=== PATIENT | female | born 1960 | race Caucasian/White ===

== ENCOUNTER 2019-08-06 07:19 | Outpatient (CLI) | payer MEDICARE, OTHER ==
--- NOTE | 2019-08-06 08:16 | CT ---
CT abdomen and pelvis noncontrast HISTORY: Right flank pain. FINDINGS: Each renal collecting system, ureter, and urinary bladder are decompressed. There are tiny calcifications, estimated at 0.2 cm greatest diameter, within nondilated calyces of the superior pole of each kidney. Lack of contrast limits evaluation for other abnormalities. The gallbladder is surgically absent. No evidence of bowel obstruction or inflammation. Left hip prosthesis partially visualized. There are prominent degenerative changes of the lumbar spine, including significant central canal stenoses at t he L1-2 and L3-4 levels. Calcification within the arterial structures. IMPRESSION: Tiny nonobstructing bilateral renal calculi. Atherosclerosis. Prominent degenerative changes of the lumbar spine.
== END 2019-08-06 07:20 | disposition home or self-care (01) ==
LOC: BICCT 07:19
PROVIDERS: ATTEND Family Medicine
DX: R10.9 Unspecified abdominal pain (principal); N20.0 Calculus of kidney; I70.90 Unspecified atherosclerosis; M47.816 Spondylosis without myelopathy or radiculopathy, lumbar region
CPT/HCPCS: 74176

== ENCOUNTER 2019-09-10 01:19 | Emergency (ER) | payer MEDICARE ==
[2019-09-10] MEDS ORDERED: Aspirin 325 MG TAB ONE (01:41)
[2019-09-10 01:54] LABS: #Basophils 0.1 thou/uL (0.0-0.2); #Eosinphils 0.4 thou/uL (0.0-0.7); #Lymphocytes 2.6 thou/uL (1.20-3.40); #Monocytes 0.5 thou/uL (0.11-0.59); #Neutrophils 4.1 thou/uL (1.40-6.50); %Basophils 1.3 % (0.0-1.0); %Eosinophils 4.7 % (0.0-10.0); %Lymphocytes 34.1 % (21.0-51.0); %Monocytes 6.6 % (0.0-10.0); %Neutrophils 53.3 % (42.0-75.0); Hemoglobin 15.2 g/dL (12.0-16.0); Mean Corpuscular Hemoglobin 29.8 pg (27.0-31.0); Mean Corpuscular Volume 90.2 fL (78.0-98.0); Mean Platelet Volume 9.4 fL (7.4-10.4); Platelet Count 153 thou/uL (130-400); RBC Distribution Width 12.6 % (11.5-14.5); Red Blood Cell (RBC) Count 5.09 mill/uL (4.20-5.40); White Blood Cell (WBC) Count 7.8 thou/uL (4.8-10.8)
[2019-09-10 02:09] LABS: ALT (SGPT) 203 U/L (8-55); AST (SGOT) 92 U/L (5-34); Albumin 4.2 g/dL (3.5-5.0); Alkaline Phosphatase 83 U/L (40-110); Anion Gap 10 mmol/L (10-20); BUN (Urea Nitrogen) 19 mg/dL (9.8-20.1); Bilirubin, Total 0.3 mg/dL (0.2-1.2); Calc. Creatinine Clearance 0 mL/min (70-130); Calcium 9.1 mg/dL (7.8-10.44); Carbon Dioxide 28 mmol/L (22-29); Chloride 106 mmol/L (98-107); Estimated GFR-MDRD 76; Globulin 3.5 g/dL (2.4-3.5); Glucose 100 mg/dL (70-105); Potassium 4.2 mmol/L (3.5-5.1); Protein, Total 7.7 g/dL (6.0-8.3); Sodium 140 mmol/L (136-145)
--- NOTE | 2019-09-10 08:36 | ULT ---
PRELIMINARY REPORT/[facility]/EMERGENCY AFTER HOURS PROCEDURE: EXAM: US Abdomen Limited, Right Upper Quadrant. CLINICAL HISTORY: Epigastric pain that radiated to back, nausea TECHNIQUE: Real-time ultrasound of the right upper quadrant with image documentation. COMPARISON: None FINDINGS: LIVER: Appears enlarged at 20 cm and demonstrates fatty infiltration. The RIGHT lobe demonstrates a 1.9 x 1.3 x 1.6 cm echogenic focus, possibly a hemangioma GALLBLADDER: Surgically absent. COMMON BILE DUCT: No dilation. Measures 3.5 mm PANCREAS: Partially obscured by overlying bowel gas. RIGHT KIDNEY: Unremarkable. No hydronephrosis. Measures 10.9 cm IMPRESSION: Possible hemangioma in the liver for which multiphasic hepatic CT scanning should be considered. Enl arged fatty infiltrated liver with cholecystectomy however no acute process is noted ELECTRONICALLY SIGNED BY: Maycol Falcon MD Sep 10, 2019 3:05:37 AM CLERICAL ASSISTANT This report is intended for review by the ordering physician only, in accordance of law. If you recei ve this report in error, please call [facility] at [phone]. FINAL REPORT ULTRASOUND GALLBLADDER RIGHT UPPER QUADRANT: HISTORY: Right upper quadrant pain. COMPARISON: None. FINDINGS: Findings and impression are concordant with the preliminary report. POS: CET
--- NOTE | 2019-09-10 08:38 | CT ---
PRELIMINARY REPORT/[facility]/EMERGENCY AFTER HOURS PROCEDURE: CT angiography chest Comparison: None Indication: REPORTS CHEST PAIN/SOB STARTING AT 1800. STATES PAIN TRAVELS BACK. DENIES N/V Findings: No aortic aneurysm or evidence of dissection. Prominent prepericardial lymph nodes. No other mediastinal mass or lymphadenopathy. Borderline cardiomegaly. No pericardial effusion. Subsegmental atelectasis in the lung bases. No pulmonary embolus. Normal airways. No consolidation, pleural effusion or pneumothorax. Impression: No pulmonary embolus or acute vascular abnormality identified. No definite cause for symptoms identified. There is mild subsegmental atelectasis in the lung bases. Prominent prepericardial lymph nodes are probably reactive and could be associated with hepatitis. Co rrelate clinically. ELECTRONICALLY SIGNED BY: Renard Marte MD Sep 10, 2019 2:42:01 AM JEWELRY FINISHER This report is intended for review by the ordering physician only, in accordance of law. If you recei ve this report in error, please call [facility] at [phone]. FINAL REPORT CT ANGIOGRAM CHEST WITH CONTRAST: HISTORY: Chest pain. COMPARISON: None. FINDINGS: CT angiogram chest performed after the intravenous administration of contrast. Three-D rendering is provided. Findings and impression are concordant with the preliminary report. In addition, there is bronchial wall thickening of both lower lobe proximal bronchi suggesting bronchitis. POS: CET
--- NOTE | 2019-09-10 08:49 | RAD ---
CHEST 1 VIEW: Date: 09/10/2019 HISTORY: Chest pain. COMPARISON: CT angiogram chest same date. FINDINGS: Lungs are clear. No pneumothorax or effusion. Cardiac silhouette and mediastinal contour within westley l limits. IMPRESSION: No acute intrathoracic abnormality. POS: CET
[2019-09-10] MEDS ORDERED: Iopamidol-370 76% 500 ML 1 ML ONE (13:30)
== END 2019-09-10 03:23 | disposition home or self-care (01) ==
LOC: ERS 01:19
DX: J98.11 Atelectasis (principal); R74.0 Nonspecific elevation of levels of transaminase and lactic acid dehydrogenase [LDH]; I10 Essential (primary) hypertension; F41.9 Anxiety disorder, unspecified; F32.9 Major depressive disorder, single episode, unspecified; F17.210 Nicotine dependence, cigarettes, uncomplicated; M06.9 Rheumatoid arthritis, unspecified; Z79.899 Other long term (current) drug therapy
CPT/HCPCS: 71045; 71275; 76705; 80053; 83690; 83880; 84484; 85025; 93005; 96360; 96361; Q9967

== ENCOUNTER 2020-03-29 09:44 | Outpatient (CLI) | payer MEDICARE ==
--- NOTE | 2020-03-29 14:01 | MMO ---
Bilateral MAMMO Bilat Screen [facility]. CLINICAL HISTORY: Patient is 59 years old and is seen for screening. The patient family history of breast cancer is unknown. The patient has no personal history of cancer. VIEWS: The views performed were: bilateral craniocaudal with tomosynthesis and bilateral mediolateral oblique with tomosynthesis. FILMS COMPARED: The present examination has been compared to a prior imaging study performed at [facility] on 10/18/2017. This study has been interpreted with the assistance of computer-aided detection. MAMMOGRAM FINDINGS: There are scattered fibroglandular densities. There are no suspicious masses, suspicious calcifications, or new areas of architectural distortion. IMPRESSION: THERE IS NO MAMMOGRAPHIC EVIDENCE OF MALIGNANCY. A ROUTINE FOLLOW-UP MAMMOGRAM IN 1 YEAR IS RECOMMENDED. THE RESULTS OF THIS EXAM WERE SENT TO THE PATIENT. ACR BI-RADS Category 1 - Negative MAMMOGRAPHY NOTE: 1. A negative mammogram report should not delay a biopsy if a dominant of clinically suspicious mass is present. 2. Approximately 10% to 15% of breast cancers are not detected by mammography. 3. Adenosis and dense breasts may obscure an underlying neoplasm. Reported by: JACQUES NEW MD Electonically Signed: [id number]
== END 2020-03-29 09:45 | disposition home or self-care (01) ==
LOC: BICMAMMO 09:44
PROVIDERS: ATTEND Family Medicine
DX: Z12.31 Encounter for screening mammogram for malignant neoplasm of breast (principal)
CPT/HCPCS: 77063; 77067

== ENCOUNTER 2020-04-01 13:44 | Outpatient (CLI) | payer MEDICARE, OTHER ==
--- NOTE | 2020-04-01 14:51 | ULT ---
SOFT TISSUE ULTRASOUND OF THE NECK: 04/01/20 INDICATION: Swelling in the right posterior neck. COMPARISON: MR cervical spine dated 02/25/13. FINDINGS: Submitted images demonstrates a 3.7 x 1.2 cm soft tissue mass that has a similar echogenicity of the overlying subcutaneous fat and suspicious for a poorly encapsulated lipoma. IMPRESSION: Findings suspicious for poorly encapsulated lipoma in the region of palpable interest involving the r ight posterior neck. Recommend a dedicated MRI of the neck with and without contrast for further alivia acterization. POS: ARIANE
== END 2020-04-01 13:45 | disposition home or self-care (01) ==
LOC: BICULT 13:44
PROVIDERS: ATTEND Family Medicine
DX: R22.1 Localized swelling, mass and lump, neck (principal)
CPT/HCPCS: 76536

== ENCOUNTER 2022-04-16 12:09 | Outpatient (CLI) | payer MEDICARE | END 2022-04-16 12:10 | disposition home or self-care (01) | LOC: BICCT 12:09 | PROVIDERS: ATTEND Family Medicine | DX: Z12.31 Encounter for screening mammogram for malignant neoplasm of breast (principal); Z12.2 Encounter for screening for malignant neoplasm of respiratory organs; Z13.820 Encounter for screening for osteoporosis; F17.210 Nicotine dependence, cigarettes, uncomplicated; M47.814 Spondylosis without myelopathy or radiculopathy, thoracic region; M47.816 Spondylosis without myelopathy or radiculopathy, lumbar region; M25.78 Osteophyte, vertebrae; M48.061 Spinal stenosis, lumbar region without neurogenic claudication; M81.0 Age-related osteoporosis without current pathological fracture; Z78.0 Asymptomatic menopausal state | CPT/HCPCS: 71271; 77063; 77067; 77080 ==

== ENCOUNTER 2023-04-18 11:13 | Outpatient (CLI) | payer MEDICARE | END 2023-04-18 11:14 | disposition home or self-care (01) | LOC: BICMAMMO 11:13 | PROVIDERS: ATTEND Family Medicine | DX: Z12.31 Encounter for screening mammogram for malignant neoplasm of breast (principal) | CPT/HCPCS: 77063; 77067 ==